=== PATIENT | female | born 1995 | race Caucasian/White ===

== ENCOUNTER 2018-06-15 20:30 | Emergency (ER) | payer MEDICAID ==
[~2018-06-15] VITALS: Ht 152.4 cm; Wt 65.8 kg
[2018-06-15 20:48] VITALS: Ht 152.4 cm; Wt 65.8 kg
[2018-06-15 21:16] LABS: WBC 22.4 10x3/uL (4.8-10.8)
[2018-06-15 21:17] LABS: APPEARANCE CLEAR (CLEAR); BILIRUBIN NEGATIVE (NEGATIVE); COLOR YELLOW (YELLOW); GLUCOSE NEGATIVE (NEGATIVE); HEMATOCRIT 38.2 % (36.0-48.0); HEMOGLOBIN 13.4 g/dL (12-16); KETONE SMALL mg/dL (NEGATIVE); MCH 30.3 pg (26.0-34.0); MCHC 35.1 g/dL (31.0-37.0); MCV 86.4 fL (80.0-100.0); MEAN PLATELET VOLUME 9.5 fL (7.4-10.4); NITRITE NEGATIVE (NEGATIVE); PLATELET COUNT 246 10x3/uL (130-400); PROTEIN NEGATIVE (NEGATIVE); RBC 4.42 10x6/uL (4.00-5.40); RDW 13.1 % (11.5-14.5); SPECIFIC GRAVITY 1.005 (1.005-1.020); UROBILINOGEN NORMAL (NORMAL)
[2018-06-15 21:23] LABS: BACTERIA MODERATE /hpf (NONE SEEN); EPITHELIAL CELLS 0-5 /hpf (0-5); WHITE CELLS - URINE 0-5 /hpf (0-5)
[2018-06-15 21:24] LABS: MUCUS <1+ /lpf (NONE SEEN); RED CELLS - URINE 0-5 /hpf (0-5)
[2018-06-15 21:31] LABS: HCG SERUM NEGATIVE (NEGATIVE)
[2018-06-15 21:39] LABS: ALBUMIN 3.9 g/dL (3.4-5.0); ALKALINE PHOSPHATASE 37 U/L (46-116); ALT (SGPT) 19 U/L (10-68); AMYLASE - SERUM 26 U/L (25-115); BILIRUBIN - TOTAL 0.77 mg/dL (0.2-1.3); CALC OSMOLALITY 272 mosm/kg (275-300); CALCIUM 8.7 mg/dL (8.5-10.1); CARBON DIOXIDE 24.2 mmol/L (21.0-32.0); CHLORIDE - SERUM 103 mmol/L (98-107); CREATININE - SERUM 0.6 mg/dL (0.6-1.3); GLUCOSE 114 mg/dL (74-106); LIPASE 64 U/L (73-393); LYMPHOCYTES 13 % (15-50); MONOCYTES 2 % (2-11); NEUTROPHILS 85 % (40-80); PLATELET ESTIMATE NORMAL; POTASSIUM - SERUM 3.2 mmol/L (3.5-5.1); PROTEIN - SERUM 7.4 g/dL (6.4-8.2); SODIUM 137 mmol/L (136-145); UREA NITROGEN 7 mg/dL (7-18); eGFR NON AFRICAN AMERICAN > 90 mL/min (90-120)
[2018-06-15] MEDS ORDERED: LEVSIN/ANASP0.125 MG PO (23:17)
[2018-06-15] MEDS ORDERED: PHENAZOPYRIDIN200 MG PO (23:17)
[2018-06-15] MEDS ORDERED: MACROBID100 MG PO (23:17)
[2018-06-15] MEDS ORDERED: IBUPROFEN800 MG PO (23:17)
[2018-06-15] MEDS ORDERED: KEFLEX500 MG PO (23:17)
[2018-06-15] MEDS ORDERED: ACETAMINOPHEN500 M1 PO (23:17)
[2018-06-16 00:58] VITALS: BP 99/62
[2018-06-16 13:12] VITALS: Ht 152.4 cm; Wt 65.8 kg
[2018-06-17] MEDS ORDERED: AUGMENTIN 875-11 TAB PO (10:36)
[2018-06-17] MEDS ORDERED: HYDROCODON-ACE1 EAC7 PO (10:37)
[2018-06-17] MEDS ORDERED: VIBRAMYCIN 100100 MG PO (10:40)
[2018-06-17] MEDS ORDERED: SPRINTEC1 TAB PO (10:45)
[2018-06-18] MEDS ORDERED: ZOFRAN ODT4 MG/UDTAB PO (08:07)
== END 2018-06-16 00:51 | disposition home or self-care (01) ==
LOC: D.ER 20:30
PROVIDERS: Family Medicine
DX: N39.0 Urinary tract infection, site not specified (principal); N30.00 Acute cystitis without hematuria; D72.829 Elevated white blood cell count, unspecified; R11.0 Nausea